=== PATIENT | female | born 2000 | race Two or more races ===

== ENCOUNTER 2021-07-24 22:35 | Inpatient (IN) | payer OTHER ==
[~2021-07-24] VITALS: Ht 154.9 cm; Wt 70.8 kg
[2021-07-24] MEDS ORDERED: PRENATAL TABLE1 EAC1 PO (22:40)
== END 2021-07-26 15:58 | disposition home or self-care (01) | DRG 833 ==
LOC: LDR 22:35
PROVIDERS: ADMIT Obstetrics & Gynecology; ATTEND Obstetrics & Gynecology
PROC: 4A1HXFZ Monitoring of Products of Conception, Cardiac Rhythm, External Approach (ICD-10-PCS; principal; 2021-07-24)
DX: O47.03 False labor before 37 completed weeks of gestation, third trimester (principal); Z3A.36 36 weeks gestation of pregnancy

== ENCOUNTER 2021-08-12 07:28 | Inpatient (IN) | payer OTHER ==
[~2021-08-12] VITALS: Ht 154.9 cm; Wt 74.4 kg
[~2021-08-12 07:28] MED LIST: PRENATAL TABLE1 EAC1 PO
== END 2021-08-14 11:20 | disposition home or self-care (01) | DRG 807 ==
LOC: LDR 07:28 → OB/GYN 20:44
PROVIDERS: ADMIT Obstetrics & Gynecology; ATTEND Obstetrics & Gynecology
PROC: 10E0XZZ Delivery of Products of Conception, External Approach (ICD-10-PCS; principal; 2021-08-12)
PROC: 0W8NXZZ Division of Female Perineum, External Approach (ICD-10-PCS; 2021-08-12)
PROC: 4A1HXCZ Monitoring of Products of Conception, Cardiac Rate, External Approach (ICD-10-PCS; 2021-08-12)
DX: O80 Encounter for full-term uncomplicated delivery (principal); Z37.0 Single live birth; Z3A.39 39 weeks gestation of pregnancy; Z20.822 Contact with and (suspected) exposure to COVID-19